=== PATIENT | female | born 1935 | race Caucasian/White ===

== ENCOUNTER 2016-08-02 09:58 | Emergency (ER) | payer OTHER, BC ==
--- NOTE | 2016-08-02 10:18 | PDOC ---
History of Present Illness - General Chief Complaint: Head/Neck problem Stated Complaint: HEAD INJURY Time Seen by Provider: 08/02/16 10:17 - History of Present Illness Initial Comments: 08/02/16 10:36 Chief complaint: Nausea and vomiting after a head injury History of present illness: Patient has instability of gait due to knee problems , with frequent falls, fell backward yesterday and struck her occiput on the ground. There was no loss of consciousness and she was able to get up with assistance. Soon afterwards she felt nauseated and experienced several episodes of vomiting. She has also had the subjective sensation of fever and diffuse body aches. Review of systems: Denies any visual or focal neurologic symptoms, increased unsteadiness of gait, chest pain, shortness of breath, abdominal pain, diarrhea , hematemesis, melena, bloody stool, urinary tract symptoms, vaginal bleeding or discharge. Remainder of systems reviewed and found to be negative Past medical history: 1 TIA in the distant past with clumsiness of the right side of her body, which resolved completely within a few hours. Cerebellar infarct on MRI scan. Elevated cholesterol. Hypothyroidism. Arthritis, most severe in the knees. Restless legs Medications: Aggrenox, Celebrex, Synthroid, pramipexole, simvastatin ALLERGIES: None Social history: , stable with family, no tobacco alcohol or prescription drugs, active with minor disability due to her arthritis. Family history: Reviewed and noncontributory including early coronary artery disease, metabolic disease including diabetes, and cancer Physical exam: Alert and oriented 3, well-developed well-nourished, no acute distress, cheerful and cooperative Afebrile, vital signs normal Head atraumatic. Although the patient states there is mild tenderness upon palpation of the occiput, there is no abrasion, laceration, swelling, hematoma, ecchymosis or other bruise present PERRLA 3 mm, fundi benign with sharp disc margins and good central venous pulsations. ENT clear Neck without any mass or nodes. There appears to be mild stiffness and pain with flexion and extension, as well as rotation, but no point tenderness of the vertebral bodies and no deformity palpable Chest clear to P&A, full breath sounds throughout bilaterally, no rib cage tenderness or deformity CV S1 and S2 normal without murmur or gallop pulses full and symmetric no JVD or edema Abdomen soft nontender without mass or organomegaly No CVAT No pelvic or lower spine deformity or point tenderness Neurological C2 to 12 intact. Strength full and symmetric. No focal sensory or motor deficits. Gait stable and improved. Skin clear, no rash, adequate turgor and mucous membranes Extremities no CCE. No visible or palpable trauma, including the right hand, which she states she bruised her fall. Impression: Head injury with subsequent nausea and vomiting, as well as subjective fever and body aches. Possible subdural, possible concussion, possible coincidental gastroenteritis Plan: Head CT and symptomatic treatment if no bleed is present. Otherwise further evaluation. Past History - Past Medical History Allergies/Adverse Reactions: Allergies Allergy/AdvReac Type Severity Reaction Status Date / Time No Known Allergies Allergy Verified 08/02/16 10:01 Home Medications: Ambulatory Orders Aspirin/Dipyridamole [Aggrenox -] 1 combo PO BID 08/02/16 Celecoxib [Celebrex] 200 mg PO DAILY 08/02/16 Levothyroxine [Synthroid -] 75 mcg PO DAILY 08/02/16 Ondansetron [Zofran Odt -] 4 mg SL TID PRN #15 od.tablet 08/02/16 Pramipexole Di-HCl 0.125 mg PO HS 08/02/16 Simvastatin 10 mg PO HS 08/02/16 Medical Decision Making - Medical Decision Making 08/02/16 11:59 CT of the head is negative. No evidence of bleed or other intracranial pathology. CT of the neck negative for fracture, but an incidental finding is a pulmonary nodule. Most likely diagnosis is a coincidental early viral gastroenteritis, although mild concussion is also the possibility. We will treat symptomatically with Zofran for nausea, Tylenol for headache, clear liquids and light diet. Patient is informed of the pulmonary nodule and will follow-up with her primary physician. Family ambulatory and in no significant other discomfort and discharged to follow-up as directed *DC/Admit/Observation/Transfer Diagnosis at time of Disposition: Injury of head Qualifiers: Encounter type: initial encounter Qualified Code(s): S09.90XA - Unspecified injury of head, initial encounter - Discharge Dispostion Disposition: HOME Condition at time of disposition: Stable Admit: No - Patient Instructions Printed Discharge Instructions: DI for Closed Head Injury, DI for Nausea -- Adult Additional Instructions: Clear liquids progressing to light diet as tolerated Tylenol and nausea medication as needed See primary physician 24 hours for recheck or return to ER if symptoms worsen. Although the CAT scan showed no recent injury to your head or neck, an incidental finding was a small nodule in the top of the lung. Your primary physician should be informed of this finding, and further evaluation should be done to make sure that the nodule is not growing. May require another CAT scan in several months, but in any case she should discuss further evaluation with your doctor as soon as possible.
[2016-08-02] MEDS ORDERED: ACETAMINOPHEN 325 MG TABLET (FP) PO ONE (10:35)
[2016-08-02] MEDS ORDERED: ONDANSETRON *ODT* 4 MG TABLET ONE (10:36)
[2016-08-02] MEDS ORDERED: ONDANSETRON *ODT* 4 MG TABLET SL ONE (10:36)
[2016-08-02] MEDS ORDERED: ACETAMINOPHEN 325 MG TABLET (FP) ONE (10:36)
[2016-08-02 10:41] VITALS: BP 114/63; PULSE 88; TEMP 98.5; BMI 22.6
== END 2016-08-02 12:10 | disposition home or self-care (01) ==
LOC: FER 09:58
DX: S09.90XA Unspecified injury of head, initial encounter (principal); W18.39XA Other fall on same level, initial encounter; Z91.81 History of falling; Y93.9 Activity, unspecified; Y92.9 Unspecified place or not applicable; Z86.73 Personal history of transient ischemic attack (TIA), and cerebral infarction without residual deficits; E78.00 Pure hypercholesterolemia, unspecified; E03.9 Hypothyroidism, unspecified; M19.90 Unspecified osteoarthritis, unspecified site
CPT/HCPCS: 70450-TC; 72125-TC; 99282-25

== ENCOUNTER 2017-07-18 15:45 | Emergency (ER) | payer BC, OTHER ==
[2017-07-18 16:01] VITALS: BP 150/78; PULSE 67; TEMP 97.3; BMI 23.2
--- NOTE | 2017-07-18 16:18 | PDOC ---
History of Present Illness - General History Source: Patient Exam Limitations: No Limitations <Susu Mack - Last Filed: 07/18/17 16:55> - History of Present Illness Initial Comments: 07/18/17 16:18 The patient is a 81 year old female, with a significant past medical history of multiple strokes (taking aggrenox), Elevated cholesterol. Hypothyroidism. Arthritis, who presents to the emergency department with a laceration and localized pain to the right side of her scalp s/p mechanical fall this afternoon. She states she was moving a box into the house, however, the box was too big and pushed her back. She reportedly hit the right side of her head, but denies LOC or any other complaints of pain. She denies taking OTC medication for her pain today. She denies chest pain, shortness of breath, and dizziness. She denies fever, chills, nausea, vomit, diarrhea and constipation. She denies dysuria, frequency , urgency and hematuria. Allergies: NKDA <Brenda Law - Last Filed: 07/18/17 16:58> - General Chief Complaint: Injury Stated Complaint: FELL AND BLEEDING FROM HEAD Time Seen by Provider: 07/18/17 16:00 Past History - Past Medical History Cancer: Yes (BREAST) Cardiac Disorders: Yes (LOOP RECORDER IMPLANT JUL 2017) CVA: Yes COPD: No Disorders: Yes Hypercholesterolemia: Yes Thyroid Disease: Yes (HYPO) - Suicide/Smoking/Psychosocial Hx Smoking History: Never smoked Hx Alcohol Use: No Drug/Substance Use Hx: No Substance Use Type: None <Susu Mack - Last Filed: 07/18/17 16:55> <Brenda Law - Last Filed: 07/18/17 16:58> - Past Medical History Allergies/Adverse Reactions: Allergies Allergy/AdvReac Type Severity Reaction Status Date / Time No Known Allergies Allergy Verified 07/18/17 15:54 Home Medications: Ambulatory Orders Aspirin/Dipyridamole [Aggrenox -] 1 combo PO BID 08/02/16 Celecoxib [Celebrex] 200 mg PO DAILY 08/02/16 Levothyroxine [Synthroid -] 75 mcg PO DAILY 08/02/16 Pramipexole Di-HCl 0.125 mg PO HS 08/02/16 Simvastatin 10 mg PO HS 08/02/16 Review of Systems - Review of Systems Able to Perform ROS?: Yes Comments:: 07/18/17 16:18 GENERAL/CONSTITUTIONAL: No fever or chills. No weakness. HEAD, EYES, EARS, NOSE AND THROAT: (+) pain to laceration on right scalp. No change in vision. No ear pain or discharge. No sore throat. CARDIOVASCULAR: No chest pain or shortness of breath. RESPIRATORY: No cough, wheezing, or hemoptysis. GASTROINTESTINAL: No nausea, vomiting, diarrhea or constipation. GENITOURINARY: No dysuria, frequency, or change in urination. MUSCULOSKELETAL: No joint or muscle swelling or pain. No neck or back pain. SKIN: (+) laceration to head. No rash NEUROLOGIC: No vertigo, loss of consciousness, or change in strength/sensation. ENDOCRINE: No increased thirst. No abnormal weight change. HEMATOLOGIC/LYMPHATIC: No anemia, easy bleeding, or history of blood clots. ALLERGIC/IMMUNOLOGIC: No hives or skin allergy. <Brenda Law - Last Filed: 07/18/17 16:58> *Physical Exam - Vital Signs Last Vital Signs Temp Pulse Resp BP Pulse Ox 97.3 F L 67 16 150/78 100 07/18/17 15:51 07/18/17 15:51 07/18/17 15:51 07/18/17 15:51 07/18/17 15:51 <Susu Mack - Last Filed: 07/18/17 16:55> - Vital Signs Last Vital Signs Temp Pulse Resp BP Pulse Ox 97.3 F L 67 16 150/78 100 07/18/17 15:51 07/18/17 15:51 07/18/17 15:51 07/18/17 15:51 07/18/17 15:51 - Physical Exam Comments: 07/18/17 16:19 GENERAL: Awake, alert, and fully oriented, in no acute distress HEAD: (+) scalp hematoma and laceration, EYES: PERRLA, EOMI, sclera anicteric, conjunctiva clear ENT: Auricles normal inspection, hearing grossly normal, nares patent, oropharynx clear without exudates. Moist mucosa NECK: Normal ROM, supple, no lymphadenopathy, JVD, or masses. no cervical spine tenderness. LUNGS: Breath sounds equal, clear to auscultation bilaterally. No wheezes, and no crackles HEART: Regular rate and rhythm, normal S1 and S2, no murmurs, rubs or gallops ABDOMEN: Soft, nontender, normoactive bowel sounds. No guarding, no rebound. No masses EXTREMITIES: Normal range of motion, no edema. Nontender joints. No clubbing or cyanosis. No cords, erythema, or tenderness NEUROLOGICAL: Cranial nerves II through XII grossly intact. Normal speech, normal gait, GCS15, MS is 5/5. SKIN: (+) laceration to right scalp. Warm, Dry, normal turgor, no rashes or lesions noted. <Brenda Law - Last Filed: 07/18/17 16:58> Procedures - Laceration/Wound Repair Parietal Wound's Depth, Shape: irregular Irrigated w/ Saline: Yes Betadine Prep: No Anesthesia: 1% Lidocaine Wound Repaired With: [place] Number of Sutures: 8 Sterile Dressing Applied: Yes <Susu Mack - Last Filed: 07/18/17 16:55> ED Treatment Course - RADIOLOGY Radiology Studies Ordered: Category Date Time Status HEAD CT WITHOUT CONTRAST [CT] Stat CT Scan 07/18/17 15:59 Taken <Susu Mack - Last Filed: 07/18/17 16:55> Medical Decision Making - Medical Decision Making 07/18/17 16:13 81-year-old female history of CVA hyperlipidemia on Aggrenox here status post fall with head trauma. Patient states she was carrying a box and ran into the door frame subsequent A falling back is unsure the exact mechanism of fall sustaining a laceration to her right scalp size LOC denies any neck or back pain has been ambulating since the event no other joint pains did not take anything prior to arrival for her pain no nausea no vomiting no weakness or numbness mild pain at the site of the wound Patient is awake alert no acute distress right posterior parietal-occipital scalp with a large hematoma no active bleeding currently no palpable skull defect no midline cervical spine tenderness cardiac and lung exam is unremarkable abdomen is soft nontender extremities are atraumatic warm well perfused neurologically she's GCS 15 moving all 4 extremities gait is normal Differential includes intracranial trauma such as ICH and scalp laceration plan CT head tetanus as needed Tylenol for pain will treat the scalp laceration with wendy likely DC home <Susu Mack - Last Filed: 07/18/17 16:55> *DC/Admit/Observation/Transfer <Susu Mack - Last Filed: 07/18/17 16:55> - Attestations Scribe Attestion: 07/18/17 16:20 Documentation prepared by Brenda Law, acting as behavioral medical director for Susu Mack MD, <Brenda Law - Last Filed: 07/18/17 16:58> Diagnosis at time of Disposition: Scalp laceration, Head trauma - Discharge Dispostion Condition at time of disposition: Improved - Referrals Referrals: Kathleen Morrow [Primary Care Provider] - - Patient Instructions Printed Discharge Instructions: DI for Laceration Repair -- Wendy, DI for Closed Head Injury Additional Instructions: you can take Tylenol 500 mg every 6 hours as needed for pain. Return to ED for staple removal in 7-10 days. Keep the wound dry for 24 hours then you may wash with mild soap and water. Apply bacitracin ointment twice daily or any triple antiobiotic cream such as neosporin. Return sooner for worsening headache nausea vomiting weakness signs of wound infection such as redness swelling yellow discharge or any concerns you may have. you should also follow up with her primary care doctor within 1 week. - Post Discharge Activity
== END 2017-07-18 17:06 | disposition home or self-care (01) ==
LOC: FER 15:45
PROC: 0HQ0XZZ Repair Scalp Skin, External Approach (ICD-10-PCS; principal; 2017-07-18)
DX: S01.01XA Laceration without foreign body of scalp, initial encounter (principal); S09.90XA Unspecified injury of head, initial encounter; E78.5 Hyperlipidemia, unspecified; Z86.73 Personal history of transient ischemic attack (TIA), and cerebral infarction without residual deficits; E03.9 Hypothyroidism, unspecified; W22.01XA Walked into wall, initial encounter; Y93.89 Activity, other specified; Y92.009 Unspecified place in unspecified non-institutional (private) residence as the place of occurrence of the external cause
CPT/HCPCS: 70450-TC; 99282-25

== ENCOUNTER 2017-07-28 11:36 | Emergency (ER) | payer OTHER ==
[2017-07-28 12:13] VITALS: BP 151/78; PULSE 73; TEMP 98.5; BMI 23.6
--- NOTE | 2017-07-28 12:24 | PDOC ---
Suture Removal/Wound Check HPI - History of Present Illness Chief Complaint: Suture/Staple Removal (other) Stated Complaint: JOSEPH REMOVAL Time Seen by Provider: 07/28/17 11:39 - Onset of Previous Treatment Comment:: 07/28/17 12:25 [place] removed from scalp laceration. Wound healing well. No sign of infection. To continue wound care and follow-up as necessary. Past History - Past Medical History Allergies/Adverse Reactions: Allergies Allergy/AdvReac Type Severity Reaction Status Date / Time latex Allergy Intermediate Rash Verified 07/28/17 12:05 Home Medications: Ambulatory Orders Aspirin/Dipyridamole [Aggrenox -] 1 combo PO BID 08/02/16 Celecoxib [Celebrex] 200 mg PO DAILY 08/02/16 Levothyroxine [Synthroid -] 75 mcg PO DAILY 08/02/16 Pramipexole Di-HCl 0.125 mg PO HS 08/02/16 Simvastatin 10 mg PO HS 08/02/16 Cancer: Yes (BREAST) Cardiac Disorders: Yes (LOOP RECORDER IMPLANT JUL 2017) CVA: Yes COPD: No Disorders: Yes Hypercholesterolemia: Yes Thyroid Disease: Yes (HYPO) Other medical history: RESTLESS LEG SYNCOPE - Surgical History Cardiac Surgery: Yes (RECORDER IMPLANT) - Immunization History TDAP Vaccination: Yes (OCTOBER 2015) - Suicide/Smoking/Psychosocial Hx Smoking History: Never smoked Information on smoking cessation initiated: No Hx Alcohol Use: No Drug/Substance Use Hx: No Substance Use Type: None *DC/Admit/Observation/Transfer Diagnosis at time of Disposition: Removal of joseph - Discharge Dispostion Disposition: HOME Condition at time of disposition: Improved Admit: No - Referrals - Patient Instructions Printed Discharge Instructions: DI for Suture Removal Additional Instructions: Continue to dress with bacitracin. Avoid using a brush or comb on the area and avoid vigorous washing for another 1-2 weeks. Recheck if there is pain, swelling , redness, or other sign of infection or bleeding. - Post Discharge Activity
== END 2017-07-28 12:50 | disposition home or self-care (01) ==
LOC: FER 11:36
DX: Z48.02 Encounter for removal of sutures (principal)
CPT/HCPCS: 99281-25